=== PATIENT | female | born 1970 | race Caucasian/White ===

== ENCOUNTER 2021-08-22 09:54 | Emergency (ER) | payer SELFPAY ==
[2021-08-22 10:00] VITALS: BP 165/100; PULSE 77; RESP 18; TEMP 36.9; O2SAT 99
--- NOTE | 2021-08-22 10:01 | US_ITS ---
WS: [id number] TRANSABDOMINAL PELVIC AND TRANSVAGINAL PELVIC ULTRASOUND HISTORY: heavy vaginal bleeding COMPARISON: None available. Uterus: 9.3 cm x 6.6 cm x 5.3 cm. Mildly enlarged anteverted uterus. Mild heterogeneity throughout th e myometrium. There is a fibroid identified in the posterior inferior myometrium measuring 1.8 x 1.6 x 1.3 cm. Endometrium: 2.0 cm. Enlarged mildly heterogeneous endometrium. No definite focal mass identified. Right ovary: 3.8 cm x 4.1 cm x 1.8 cm. Multiple small follicles in the ovary. No solid mass. Normal v ascularity. Left ovary: 2.3 cm x 2.8 cm x 2.0 cm. Normal ovary with normal vascularity. Small follicles. No free fluid in the cul-de-sac. US/US transvaginal [id number] IMPRESSION: 1. Thickened heterogeneous endometrium. No mass identified. Consider endometri al hyperplasia. Direct visualization may be necessary. 2. Mildly enlarged uterus with a fibroid in the posterior inferior myometrium.
[2021-08-22 10:22] VITALS: O2SAT 95
--- NOTE | 2021-08-22 10:28 | W.ED.FEMALGU ---
Documented by User: KAISER Farnsworth 08/22/21 12:43 HPI - Female Genitourinary General: Chief complaint: Vaginal Bleeding Stated complaint: VAGINAL BLEEDING: SENT BY PCP Time Seen by Provider: 08/22/21 09:55 Source: patient Mode of arrival: ambulatory Limitations: no limitations History of Present Illness: HPI Narrative: Patient is a 51-year-old female who presents to ED today with complaints of vaginal bleeding. She states she is currently going through menopause so often has sporadic vaginal bleeding but she states over the past 13 days she has been bleeding heavily with clots. She reports she mainly visualizes bleeding while urinating. She has no complaints of dysuria and doesn't think bleeding is urethral. She was seen by PCP and told to come to ED for evaluation becauase blood levels were low (report from clinic showed a POC hemoglobin of roughly 9). She states she chronically has anemia and takes iron supplementation. She reports mild lower pelvic cramping. Onset (ago): day(s) Severity: moderate Vaginal discharge: none Vaginal bleeding: moderate Associated symptoms: Reports vaginal bleeding; Deny abdominal pain, headache(s) or nausea Treatment prior to arrival: none Patient : No Review of Systems Const: Denies: fever(s), chills, body aches, fatigue or malaise Card: Denies: chest pain Resp: Denies: dyspnea GI: Denies: abdominal pain, nausea, vomiting or diarrhea : Reports: vaginal bleeding, irregular period and pelvic pain (intermittent cramping); Denies: flank pain, difficulty voiding, dysuria, urinary frequency, urinary urgency, urinary hesitancy or vaginal odor Musc: Denies: neck pain, back pain, extremity pain or joint pain Skin/Breast: Denies: rash Neuro: Reports: dizziness (mild/intermittent); Denies: headache(s), numbness in extremities, weakness in extremities or sensory changes Physical Exam Const: COMMON NORMALS: no acute distress, average body habitus, patient oriented x3, no limitations, healthy appearing, alert and well nourished GENERAL APPEARANCE: cooperative ORIENTATION/CONSCIOUSNESS: Yes awake, Yes oriented to person, Yes oriented to place and Yes oriented to time HENMT: COMMON NORMALS: normocephalic and atraumatic HEAD & SCALP: normocephalic and atraumatic Resp: COMMON NORMALS: normal respiratory effort and clear to auscultation bilaterally AUSCULTATION: clear to auscultation bilaterally Cardio: COMMON NORMALS: regular rate and regular rhythm RATE: regular rate RHYTHM: regular rhythm GI: COMMON NORMALS: Normal to inspection, nondistended, normoactive bowel sounds present, Soft to palpation, No hepatosplenomegaly present and no masses PALPATION: Yes Soft to palpation, Yes Tenderness to palpation present (GI) (very mild lower abdomen/pelvis; non-surgical exam) and Yes No hepatosplenomegaly present : COMMON NORMALS: Yes no CVA tenderness BLADDER/KIDNEY EXAM: Yes no CVA tenderness EXTERNAL FEMALE EXAM: Yes normal appearance of the urethra and Yes other (no bleeding noted from urethra) SPECULUM EXAM - VAGINA: No laceration, No lesion, Yes vaginal bleeding Amount: small/minimal (coming from cervical os), No mass and No Vaginal discharge present SPECULUM EXAM - CERVIX: Yes Cervical os closed, No Cervical lesion present and No Cervical mass present OB/EXTERNAL & SPECULUM: vaginal bleeding Back/Pelvis: COMMON NORMALS: no CVA tenderness Neuro: COMMON NORMALS: patient oriented x3 SENSORIUM/ORIENTATION: Yes alert, Yes oriented to person, Yes oriented to place and Yes oriented to time Skin: COMMON NORMALS: no rashes or lesions noted GENERAL SKIN EXAM: no rashes or lesions noted Course ED course: Patient has a note from her outlying clinic stating she had a POC hemoglobin of 9.4 thus prompting their referral to the ED as her hemoglobin was over 12 in March of this year. CBC here shows a hemoglobin of over 12. This seems to be a vastly different result even accounting for lab variability. Possibly POC machine needs calibrated. Regardless we will re-run a CBC here to verify results. Vital Signs: Vital signs: Vital Signs Temperature 98.4 F 08/22/21 10:00 Pulse Rate 76 08/22/21 12:48 Respiratory Rate 18 08/22/21 10:00 Blood Pressure 149/66 08/22/21 12:48 Pulse Oximetry 100 08/22/21 12:48 MDM - Female MDM Narrative: Medical decision making narrative: Patient is a perimenopausal 51-year-old here for heavy vaginal bleeding over the past 13 days. There was some question to whether this could be urethral bleeding however she was visualized to have blood coming from her cervical os. Her UA is normal. Bleeding could be secondary to ovulatory dysfunction/menopause but she was noted to have a fibroid and possible endometrial hyperplasia on US. Clinic were she was sent from noted a POC hemoglobin of roughly 9. Our CBC here showed a hemoglobin of 12.6 (this was verified by repeat lab-11.7). CM will work on getting patient an appointment with [facility] for further evaluation. Return to ED precautions given. Lab Data: Labs: Lab Results 08/22/21 08/22/21 08/22/21 10:20 10:20 10:20 WBC 6.7 10^3/uL 10^3/ uL (4.0-10.0) RBC 4.04 10^6/uL L 10 ^6/uL (4.1-5.3) Hgb 12.6 g/dL g/dL (11.5-15.3) Hct 37.4 % % (37.0-47.0) MCV 92.6 fl fl (81-99) MCH 31.2 pg pg (28.0-34.0) MCHC 33.7 g/dL g/dL (30.0-36.0) RDW 13.1 % % (12.1-15.1) Plt Count 268 10^3/cmm 10^3 /cmm (130-400) MPV 10.4 fL fL (7.4-10.4) Neut % (Auto) 74.5 % % Lymph % (Auto) 16.1 % % [place] % (Auto) 7.7 % % Eos % (Auto) 0.8 % % Baso % (Auto) 0.6 % % Neut # (Auto) 4.97 10^3/uL 10^3 /uL (1.8-7.7) Lymph # (Auto) 1.1 10^3/uL 10^3/ uL (0.8-4.8) [place] # (Auto) 0.5 10^3/uL 10^3/ uL (0.2-0.9) Eos # (Auto) 0.1 10^3/uL 10^3/ uL (0.0-0.8) Baso # (Auto) 0.0 10^3/uL 10^3/ uL (0.0-0.1) Nucleated RBC % (a uto) 0 % % Nucleated RBCs # 0.0 /100WBC /100W BC PT 12.40 SECONDS SEC ONDS (12.1-14.9) INR 0.89 (0.8-1.2) APTT 24.7 SECONDS SECO NDS (23.9-36.7) Sodium 138 mmol/L mmol/L (136-145) Potassium 4.2 mmol/L mmol/L (3.5-5.1) Chloride 102 mmol/L mmol/L (98-107) Carbon Dioxide 26 mmol/L mmol/L (22-29) Anion Gap 14.2 (5-19) BUN 12 mg/dL mg/dL (6-20) Creatinine 0.4 mg/dL L mg/dL (0.5-0.9) GFR Calculation 169.0 mL/min H mL /min (90-130) Glucose 95 mg/dL mg/dL (65-115) Calculated Osmolal ity 286 mOsm/kg mOsm/ kg (285-295) Calcium 9.2 mg/dL mg/dL (8.5-10.5) Total Bilirubin 0.3 mg/dL mg/dL (0.15-1.2) AST 17 U/L U/L (0-32) ALT 13 U/L U/L (0-33) Alkaline Phosphata se 89 IU/L IU/L (35-105) Total Protein 6.9 g/dL g/dL (6.6-8.7) Albumin 4.4 g/dL g/dL (3.5-5.2) Globulin 2.5 g/dL g/dL (1.3-4.6) Urine Color Urine Appearance Urine pH Ur Specific Gravit y Urine Protein Urine Glucose (UA) Urine Ketones Urine Blood Urine Nitrate Urine Bilirubin Prot Sulfosalicyli c Acd Urine Urobilinogen Ur Leukocyte Bea ase 08/22/21 08/22/21 11:30 11:55 WBC 7.4 10^3/uL 10^3/ uL (4.0-10.0) RBC 3.82 10^6/uL L 10 ^6/uL (4.1-5.3) Hgb 11.7 g/dL g/dL (11.5-15.3) Hct 35.0 % L % (37.0-47.0) MCV 91.6 fl fl (81-99) MCH 30.6 pg pg (28.0-34.0) MCHC 33.4 g/dL g/dL (30.0-36.0) RDW 13.1 % % (12.1-15.1) Plt Count 259 10^3/cmm 10^3 /cmm (130-400) MPV 10.5 fL H fL (7.4-10.4) Neut % (Auto) 75.0 % % Lymph % (Auto) 17.2 % % [place] % (Auto) 6.2 % % Eos % (Auto) 0.4 % % Baso % (Auto) 0.8 % % Neut # (Auto) 5.53 10^3/uL 10^3 /uL (1.8-7.7) Lymph # (Auto) 1.3 10^3/uL 10^3/ uL (0.8-4.8) [place] # (Auto) 0.5 10^3/uL 10^3/ uL (0.2-0.9) Eos # (Auto) 0.0 10^3/uL 10^3/ uL (0.0-0.8) Baso # (Auto) 0.1 10^3/uL 10^3/ uL (0.0-0.1) Nucleated RBC % (a uto) 0 % % Nucleated RBCs # 0.0 /100WBC /100W BC PT INR APTT Sodium Potassium Chloride Carbon Dioxide Anion Gap BUN Creatinine GFR Calculation Glucose Calculated Osmolal ity Calcium Total Bilirubin AST ALT Alkaline Phosphata se Total Protein Albumin Globulin Urine Color Straw (Yellow) Urine Appearance Clear (CLEAR) Urine pH 8 H (5-7) Ur Specific Gravit y 1.010 (1.005-1.030) Urine Protein Neg (Negative) Urine Glucose (UA) Norm (Normal) Urine Ketones 1+ H (Negative) Urine Blood Neg (Negative) Urine Nitrate Negative (Negative) Urine Bilirubin Neg (Negative) Prot Sulfosalicyli c Acd Negative (Negative) Urine Urobilinogen Norm mg/dL mg/dL (Negative) Ur Leukocyte Bea ase Negative (Negative) Imaging Data: US transvaginal: Radiologist's impression: [address] [place] [address] Ultrasound Report Signed Patient: Debra Correa Unit #: [id number] : 1970 Age/Sex: 51 / F ADM Date: 08/22/21 Loc: ER Room/Bed: Attending Dr: Ordering Provider/Ordering MD: Myrna Acevedo Date of Service: 08/22/21 Procedure(s): US transvaginal [address]14 Accession Number(s): [id number] Report Number: [id number] WS: [id number] TRANSABDOMINAL PELVIC AND TRANSVAGINAL PELVIC ULTRASOUND HISTORY: heavy vaginal bleeding COMPARISON: None available. Uterus: 9.3 cm x 6.6 cm x 5.3 cm. Mildly enlarged anteverted uterus. Mild heterogeneity throughout the myometrium. There is a fibroid identified in the posterior inferior myometrium measuring 1.8 x 1.6 x 1.3 cm. Endometrium: 2.0 cm. Enlarged mildly heterogeneous endometrium. No definite focal mass identified. Right ovary: 3.8 cm x 4.1 cm x 1.8 cm. Multiple small follicles in the ovary. No solid mass. Normal vascularity. Left ovary: 2.3 cm x 2.8 cm x 2.0 cm. Normal ovary with normal vascularity. Small follicles. No free fluid in the cul-de-sac. US/US transvaginal [id number] IMPRESSION: 1. Thickened heterogeneous endometrium. No mass identified. Consider endometrial hyperplasia. Direct visualization may be necessary. 2. Mildly enlarged uterus with a fibroid in the posterior inferior myometrium. Dictated By: Kalani Drake DO Signed By: Kalani Drake DO Signed Date/Time: 08/22/218 DD/ 1105 Discharge Plan Discharge Patient Disposition: Home Clinical Impression: Abnormal uterine bleeding Condition: Stable Discharge Orders: Discharge ED (Routine); Ordered 08/22/21 Ordered By: Myrna Acevedo Referrals: Sharon Viramontes PA-C [Primary Care Provider] - Activity Restrictions/Additional Instructions: As we discussed case management is working on getting you set up with the women's health clinic for further evaluation of your bleeding. You need to return to the ED for severe vaginal bleeding (soaking more than 1 pad an hour), lightheadedness/dizziness/passing out episodes, racing heart rate, pale skin, or any other concerns you may have. Coding Level of Care Code ED Straightening Press Operator for Chg Fwd Exam Detailed Documented by User: Nico Ramirez DO 08/22/21 14:27 HPI - Female Genitourinary General: Chief complaint: Vaginal Bleeding Stated complaint: VAGINAL BLEEDING: SENT BY PCP Time Seen by Provider: 08/22/21 09:55 Course Vital Signs: Vital signs: Vital Signs Temperature 98.4 F 08/22/21 10:00 Pulse Rate 76 08/22/21 12:48 Respiratory Rate 18 08/22/21 10:00 Blood Pressure 149/66 08/22/21 12:48 Pulse Oximetry 100 08/22/21 12:48 MDM - Female MDM Narrative: Medical decision making narrative: Chart reviewed. Patient seen by [facility]sworth agree with assessment and plan Lab Data: Labs: Lab Results 08/22/21 08/22/21 08/22/21 10:20 10:20 10:20 WBC 6.7 10^3/uL 10^3/ uL (4.0-10.0) RBC 4.04 10^6/uL L 10 ^6/uL (4.1-5.3) Hgb 12.6 g/dL g/dL (11.5-15.3) Hct 37.4 % % (37.0-47.0) MCV 92.6 fl fl (81-99) MCH 31.2 pg pg (28.0-34.0) MCHC 33.7 g/dL g/dL (30.0-36.0) RDW 13.1 % % (12.1-15.1) Plt Count 268 10^3/cmm 10^3 /cmm (130-400) MPV 10.4 fL fL (7.4-10.4) Neut % (Auto) 74.5 % % Lymph % (Auto) 16.1 % % [place] % (Auto) 7.7 % % Eos % (Auto) 0.8 % % Baso % (Auto) 0.6 % % Neut # (Auto) 4.97 10^3/uL 10^3 /uL (1.8-7.7) Lymph # (Auto) 1.1 10^3/uL 10^3/ uL (0.8-4.8) [place] # (Auto) 0.5 10^3/uL 10^3/ uL (0.2-0.9) Eos # (Auto) 0.1 10^3/uL 10^3/ uL (0.0-0.8) Baso # (Auto) 0.0 10^3/uL 10^3/ uL (0.0-0.1) Nucleated RBC % (a uto) 0 % % Nucleated RBCs # 0.0 /100WBC /100W BC PT 12.40 SECONDS SEC ONDS (12.1-14.9) INR 0.89 (0.8-1.2) APTT 24.7 SECONDS SECO NDS (23.9-36.7) Sodium 138 mmol/L mmol/L (136-145) Potassium 4.2 mmol/L mmol/L (3.5-5.1) Chloride 102 mmol/L mmol/L (98-107) Carbon Dioxide 26 mmol/L mmol/L (22-29) Anion Gap 14.2 (5-19) BUN 12 mg/dL mg/dL (6-20) Creatinine 0.4 mg/dL L mg/dL (0.5-0.9) GFR Calculation 169.0 mL/min H mL /min (90-130) Glucose 95 mg/dL mg/dL (65-115) Calculated Osmolal ity 286 mOsm/kg mOsm/ kg (285-295) Calcium 9.2 mg/dL mg/dL (8.5-10.5) Total Bilirubin 0.3 mg/dL mg/dL (0.15-1.2) AST 17 U/L U/L (0-32) ALT 13 U/L U/L (0-33) Alkaline Phosphata se 89 IU/L IU/L (35-105) Total Protein 6.9 g/dL g/dL (6.6-8.7) Albumin 4.4 g/dL g/dL (3.5-5.2) Globulin 2.5 g/dL g/dL (1.3-4.6) Urine Color Urine Appearance Urine pH Ur Specific Gravit y Urine Protein Urine Glucose (UA) Urine Ketones Urine Blood Urine Nitrate Urine Bilirubin Prot Sulfosalicyli c Acd Urine Urobilinogen Ur Leukocyte Bea ase 08/22/21 08/22/21 11:30 11:55 WBC 7.4 10^3/uL 10^3/ uL (4.0-10.0) RBC 3.82 10^6/uL L 10 ^6/uL (4.1-5.3) Hgb 11.7 g/dL g/dL (11.5-15.3) Hct 35.0 % L % (37.0-47.0) MCV 91.6 fl fl (81-99) MCH 30.6 pg pg (28.0-34.0) MCHC 33.4 g/dL g/dL (30.0-36.0) RDW 13.1 % % (12.1-15.1) Plt Count 259 10^3/cmm 10^3 /cmm (130-400) MPV 10.5 fL H fL (7.4-10.4) Neut % (Auto) 75.0 % % Lymph % (Auto) 17.2 % % [place] % (Auto) 6.2 % % Eos % (Auto) 0.4 % % Baso % (Auto) 0.8 % % Neut # (Auto) 5.53 10^3/uL 10^3 /uL (1.8-7.7) Lymph # (Auto) 1.3 10^3/uL 10^3/ uL (0.8-4.8) [place] # (Auto) 0.5 10^3/uL 10^3/ uL (0.2-0.9) Eos # (Auto) 0.0 10^3/uL 10^3/ uL (0.0-0.8) Baso # (Auto) 0.1 10^3/uL 10^3/ uL (0.0-0.1) Nucleated RBC % (a uto) 0 % % Nucleated RBCs # 0.0 /100WBC /100W BC PT INR APTT Sodium Potassium Chloride Carbon Dioxide Anion Gap BUN Creatinine GFR Calculation Glucose Calculated Osmolal ity Calcium Total Bilirubin AST ALT Alkaline Phosphata se Total Protein Albumin Globulin Urine Color Straw (Yellow) Urine Appearance Clear (CLEAR) Urine pH 8 H (5-7) Ur Specific Gravit y 1.010 (1.005-1.030) Urine Protein Neg (Negative) Urine Glucose (UA) Norm (Normal) Urine Ketones 1+ H (Negative) Urine Blood Neg (Negative) Urine Nitrate Negative (Negative) Urine Bilirubin Neg (Negative) Prot Sulfosalicyli c Acd Negative (Negative) Urine Urobilinogen Norm mg/dL mg/dL (Negative) Ur Leukocyte Bea ase Negative (Negative) Discharge Plan Discharge Patient Disposition: Home Clinical Impression: Abnormal uterine bleeding Condition: Stable Discharge Orders: Discharge ED (Routine); Ordered 08/22/21 Ordered By: Myrna Acevedo Referrals: Sharon Viramontes PA-C [Primary Care Provider] - Activity Restrictions/Additional Instructions: As we discussed case management is working on getting you set up with the women's health clinic for further evaluation of your bleeding. You need to return to the ED for severe vaginal bleeding (soaking more than 1 pad an hour), lightheadedness/dizziness/passing out episodes, racing heart rate, pale skin, or any other concerns you may have. Coding Level of Care Code ED Straightening Press Operator for Chg Fwd Exam Detailed
[2021-08-22 10:51] LABS: Basophils % 0.6 %; Eosinophils # 0.1 10^3/uL (0.0-0.8); Eosinophils % 0.8 %; Hematocrit 37.4 % (37.0-47.0); Hemoglobin 12.6 g/dL (11.5-15.3); Lymphocytes # 1.1 10^3/uL (0.8-4.8); Lymphocytes % 16.1 %; Mean Corpuscular HGB Conc 33.7 g/dL (30.0-36.0); Mean Corpuscular Hemoglobin 31.2 pg (28.0-34.0); Mean Corpuscular Volume 92.6 fl (81-99); Mean Platelet Volume 10.4 fL (7.4-10.4); Monocytes # 0.5 10^3/uL (0.2-0.9); Monocytes % 7.7 %; Neutrophils # 4.97 10^3/uL (1.8-7.7); Neutrophils % 74.5 %; Nucleated Red Blood Cells % 0 %; Platelet Count 268 10^3/cmm (130-400); Red Blood Count 4.04 10^6/uL (4.1-5.3); Red Cell Distribution Width 13.1 % (12.1-15.1); White Blood Count 6.7 10^3/uL (4.0-10.0)
--- NOTE | 2021-08-22 11:04 | PC.NURSE ---
Pt oriented to room. C/o vaginal bleeding for 13 days. Pt reports it to be crampy and has multiple big clots. Pt placed in gown, put on hemodynamic monitoring. call light within reach.
[2021-08-22 11:05] LABS: INR 0.89 (0.8-1.2)
[2021-08-22 11:06] LABS: Partial Thromboplastin Time 24.7 SECONDS (23.9-36.7)
[2021-08-22 11:13] LABS: Alanine Aminotransferase 13 U/L (0-33); Albumin Level 4.4 g/dL (3.5-5.2); Alkaline Phosphatase 89 IU/L (35-105); Anion Gap 14.2 (5-19); Aspartate Amino Transferase 17 U/L (0-32); Blood Urea Nitrogen 12 mg/dL (6-20); Calcium 9.2 mg/dL (8.5-10.5); Carbon Dioxide 26 mmol/L (22-29); Chloride 102 mmol/L (98-107); Globulin 2.5 g/dL (1.3-4.6); Glucose 95 mg/dL (65-115); Osmolality Calculated 286 mOsm/kg (285-295); Potassium 4.2 mmol/L (3.5-5.1); Sodium 138 mmol/L (136-145); Total Bilirubin 0.3 mg/dL (0.15-1.2); Total Protein 6.9 g/dL (6.6-8.7)
[2021-08-22 11:18] LABS: Creatinine Clr Calc Pharmacy 165.4568
[2021-08-22 11:52] LABS: Add Urine Microscopic? NO; Charge for UA Resulting for Rev
[2021-08-22 12:04] LABS: Bilirubin Urine Neg (Negative); Blood Urine Neg (Negative); Glucose Urine UA Norm (Normal); Ketones Urine 1+ (Negative); Nitrate Urine Negative (Negative); Protein Urine Neg (Negative); Urine Appearance Clear (CLEAR); Urine Color Straw (Yellow); pH Urine 8 (5-7)
[2021-08-22 12:05] LABS: Leukocyte Esterase Urine Negative (Negative); Sulfosalicylic Acid Urine Negative (Negative); Urobilinogen Urine Norm (Negative)
--- NOTE | 2021-08-22 12:05 | DCPLANNER ---
bus company manager had message to schedule a follow up appointment for patient with [facility]. bus company manager called [facility], spoke with Luis, gave clinic patients information. bus company manager was told that patients information would be printed and reviewed. Clinic will call patient with appointment information.
[2021-08-22 12:17] LABS: Basophils # 0.1 10^3/uL (0.0-0.1); Basophils % 0.8 %; Eosinophils % 0.4 %; Hemoglobin 11.7 g/dL (11.5-15.3); Lymphocytes # 1.3 10^3/uL (0.8-4.8); Lymphocytes % 17.2 %; Mean Corpuscular HGB Conc 33.4 g/dL (30.0-36.0); Mean Corpuscular Hemoglobin 30.6 pg (28.0-34.0); Mean Corpuscular Volume 91.6 fl (81-99); Mean Platelet Volume 10.5 fL (7.4-10.4); Monocytes # 0.5 10^3/uL (0.2-0.9); Monocytes % 6.2 %; Neutrophils # 5.53 10^3/uL (1.8-7.7); Nucleated Red Blood Cells % 0 %; Platelet Count 259 10^3/cmm (130-400); Red Blood Count 3.82 10^6/uL (4.1-5.3); Red Cell Distribution Width 13.1 % (12.1-15.1); White Blood Count 7.4 10^3/uL (4.0-10.0)
[2021-08-22 12:48] VITALS: BP 149/66; PULSE 76; O2SAT 100
--- NOTE | 2021-08-27 12:30 | DCPLANNER ---
Addendum entered by Cristina Perez 11/15/21 11:09: Patient had a follow up appointment scheduled with [facility] - patient did attend appointment. Original Note: Patient has a follow up appointment scheduled for Thursday, September 16, 2021 at 8:[address] Barnett. Clinic will call patient with appointment information.
== END 2021-08-22 12:58 | disposition home or self-care (01) ==
PROVIDERS: Emergency Provider Physician Assistant; PCP Physician Assistant
DX: N93.9 Abnormal uterine and vaginal bleeding, unspecified (principal)
CPT/HCPCS: 36415; 51701; 76830; 80053; 81003; 85025; 85610; 85730; 99283; E0352

== ENCOUNTER → 2021-09-16 08:54 | Outpatient (BNVA) | payer SELFPAY | PROVIDERS: PCP Physician Assistant; Referring Provider Physician Assistant; Visit Provider Obstetrics & Gynecology | DX: Z12.4 Encounter for screening for malignant neoplasm of cervix (principal); N93.9 Abnormal uterine and vaginal bleeding, unspecified | CPT/HCPCS: 83001; 84146; 84443; 84702; 87624 ==

== ENCOUNTER 2024-01-07 08:35 | Outpatient (CLI) | payer BC, SELFPAY ==
--- NOTE | 2024-01-07 08:39 | MM_ITS ---
WS: [id number] BILATERAL SCREENING DIGITAL TOMOSYNTHESIS MAMMOGRAM WITH CAD HISTORY: Z12.31 - Encounter for screening mammogram for malignant ... COMPARISON: 12/13/2018 Bilateral CC and MLO views with tomosynthesis and synthetic mammography submitted. Computer aided det ection analyzed. Breast composition: The breasts are heterogeneously dense, which may obscure small masses. No suspici ous masses, microcalcifications or architectural distortion. Benign calcifications. IMPRESSION: MM/[place] [id number] BI-RADS: 2-Benign FOLLOW UP: 1 Year Follow-up
== END 2024-01-07 08:36 | disposition home or self-care (01) ==
LOC: RAD 08:35
PROVIDERS: PCP Physician Assistant; Visit Provider Obstetrics & Gynecology
DX: Z12.31 Encounter for screening mammogram for malignant neoplasm of breast (principal)
CPT/HCPCS: 77063; 77067

== ENCOUNTER 2024-03-21 18:01 | Observation (INO) | payer BC, SELFPAY ==
--- NOTE | 2024-03-13 09:38 | ANES.PREANE2 ---
Pre-Anesthetic Assessment Height/Weight: Height 1.73 m Operation Date: 03/21/24 14:55 Proposed Procedures p Total Vaginal Hysterectomy 87647, N93.9, D25.1(Not Applicable) - Gilberto Barnett MD s Salpingo-Oophorectomy (Vaginal)(Not Applicable) - Gilberto Barnett MD Familial anesthetic complications: none Was Beta Servando taken within 24 hours: N/A Was Clonidine taken within 24 hours: N/A Social Alcohol (daily beer) and No tobacco (h/o smoking) Exam alert, oriented x 3, clear to auscultation bilaterally and regular rate & rhythm Airway Submandibular: within normal limits Cervical ROM: within normal limits Mallampati: Class II Dentition: chipped CV/HEM Hypertension GI Gastroesophageal Reflux Disease Musc/skel Lower Back Pain and Osteoarthritis/DJD Anesthetic Plan ASA status: 3 Anesthesia: General Medications/Allergies Home Medications Medication Instructions Recorded Confirmed Last Taken Type lisinopril 10 mg tablet 10 mg PO DAILY 11/26/23 03/13/24 03/13/24 History esomeprazole magnesium 20 mg 20 mg PO DAILY 03/13/24 03/13/24 03/13/24 History capsule,delayed release (Nexium) Allergies Allergy/AdvReac Type Severity Reaction Status Date / Time No Known Allergies Allergy Verified 03/13/24 07:49 [facility] Anesthesia Surgical History H/O tubal ligation Family History Father Diabetes Hyperlipidemia Hypertension Heart disease Mother Diabetes Hyperlipidemia Hypertension Grandmother Diabetes paternal Family/Other Diabetes paternal family members Denies family history of Colon cancer Ovarian cancer Clotting disorder Breast cancer Anesthesia complication Bleeding disorder Uterine cancer Thyroid disease Stroke Data Anesthesia Cardiac Studies: No Data to Display
[2024-03-21] VITALS (13 sets, daily range): BP systolic 143–185; BP diastolic 79–107; PULSE 64–85; RESP 1–27; TEMP 36.3–37.3; O2SAT 93–100; BMI 23.1
--- NOTE | 2024-03-21 13:43 | P.ANESUD_ITS ---
Pre-Anesthetic Update Pre-Anesthetic Assessment: Date of Surgery/Procedure: 03/21/24 Preop Heydi gnosis: Menorrhagia, uterine fibroid Proposed Procedure: Operation Date: 03/21/24 14:55 Proposed Procedures p Total Vaginal Hysterectomy 69456, N93.9, D25.1(Not Applicable) - Gilberto Barnett MD s Salpingo-Oophorectomy (Vaginal)(Not Applicable) - Gilberto Barnett MD Any changes to Pre-Anesthetic Assessment?: No Last Intake: > 8hrs Exam: Pre-Anes Outpt Exam: alert, oriented x 3, clear to auscultation bilaterally and regular rate & rhythm Cardiac Studies: No Data to Display
[2024-03-21 13:46] LABS: OR HCG Qualitative Urine Negative (Negative)
[2024-03-21] MEDS: scopolamine 1.5 Patch 1 PATCH TRANSDERMA (13:59)
[2024-03-21] MEDS: sodium chloride 0.9% 500 ML IV (14:00)
[2024-03-21] MEDS: sodium chloride 0.9% 1,000 ML 30 ML IV (14:00)
[2024-03-21] MEDS: ceFOXitin 2,000 MG in sodium chloride 0.9% (plus) 50 ML 100 MG IV (14:00)
[2024-03-21 14:21] LABS: Add Urine Microscopic? YES; Bilirubin Urine Neg (Negative); Blood Urine Neg (Negative); Glucose Urine UA Norm (Normal); Ketones Urine Negative (Negative); Leukocyte Esterase Urine Negative (Negative); Nitrate Urine Negative (Negative); Protein Urine Neg (Negative); Sulfosalicylic Acid Urine Negative (Negative); Urine Appearance Cloudy (CLEAR); Urine Color Yellow (Yellow); Urobilinogen Urine Norm (Negative); pH Urine 8 (5-7)
[2024-03-21 14:22] LABS: Amorphous Sediment Urine 2+ /hpf; Bacteria Urine 1+ /hpf; RBC Urine 0-4 /hpf (0-2); Squamous Epithelial Cell Urine 0-4 /hpf (0-5); WBC Urine 0-4 /hpf (0-5)
[2024-03-21 14:28] LABS: Basophils # 0.1 10^3/uL (0.0-0.1); Basophils % 1.5 %; Eosinophils # 0.2 10^3/uL (0.0-0.8); Lymphocytes % 36.5 %; Mean Corpuscular HGB Conc 34.1 g/dL (30-55); Mean Corpuscular Volume 93.6 fl (85-98); Mean Platelet Volume 10.3 fL (7.4-10.4); Monocytes # 0.5 10^3/uL (0.2-0.9); Monocytes % 8.6 %; Neutrophils # 2.68 10^3/uL (1.8-7.7); Neutrophils % 49.2 %; Nucleated Red Blood Cells % 0 %; Platelet Count 293 10^3/cmm (157-399); Red Blood Count 4.38 10^6/uL (3.85-5.65); Red Cell Distribution Width 11.9 % (12.1-15.1); White Blood Count 5.45 10^3/uL (3.29-11.43)
[2024-03-21 14:54] LABS: Alanine Aminotransferase 17 U/L (0-33); Albumin Level 4.4 g/dL (3.5-5.2); Alkaline Phosphatase 124 U/L (35-105); Aspartate Amino Transferase 24 U/L (0-32); Blood Urea Nitrogen 12 mg/dL (6-20); Calcium 9.7 mg/dL (8.5-10.5); Carbon Dioxide 27 mmol/L (22-29); Chloride 102 mmol/L (98-107); Creatinine Clr Calc Pharmacy 133.3426; Globulin 3.4 g/dL (1.3-4.6); Glomerular Filtration Rate 129.6 mL/min (90-130); Glucose 88 mg/dL (65-115); Osmolality Calculated 289 mOsm/kg (285-295); Sodium 140 mmol/L (136-145); Total Bilirubin 0.4 mg/dL (0.15-1.2); Total Protein 7.8 g/dL (6.6-8.7)
[2024-03-21 14:55] LABS: Anion Gap 14.9 (5-19); Potassium 3.9 mmol/L (3.5-5.1)
--- NOTE | 2024-03-21 15:30 | W.PM.OPSUD ---
Surgery/Procedure H&P Update DATE OF PROCEDURE: March 21, 2024 DATE H&P PERFORMED: 03/13/24 H&P UPDATE INFORMATION: I have reviewed H&P completed within last 30 days, I have examined patient prior to procedure and No changes to prior documentation PREOP DIAGNOSIS: Menorrhagia, uterine fibroid PLANNED PROCEDURE: Operation Date: 03/21/24 14:55 Proposed Procedures p Total Vaginal Hysterectomy 46565, N93.9, D25.1(Not Applicable) - Gilberto Barnett MD s Salpingo-Oophorectomy (Vaginal)(Not Applicable) - Gilberto Barnett MD
[2024-03-21] MEDS: lidocaine-epi 2% PF 1:200,000 20 mL SDV INJECTION (16:29)
--- NOTE | 2024-03-21 17:26 | P.BOP_ITS ---
Date of Procedure: 03/21/24 Surgeon: Gilberto Barnett MD Smelter Liner(s): Procedure(s) performed: Total vaginal hysterectomy with bilateral salpingo- oophorectomy Findings of the procedure(s): Fibroid uterus Estimated blood loss: 150 mL Specimen(s) removed: Uterus, left and right fallopian tubes and ovaries Post-operative diagnosis: Status post total vaginal hysterectomy with bilateral salpingo-oophorectomy
--- NOTE | 2024-03-21 17:27 | P.OP_ITS ---
Operative Report Date of procedure: March 21, 2024 Pre-op diagnosis: Fibroid uterus Abnormal uterine bleeding: Menorrhagia Post-op diagnosis: same Procedure done: Total vaginal hysterectomy with bilateral salpingo-oophorectomy Specimens removed/disposition: Uterus Left and right fallopian tubes and ovaries Surgeon: Gilberto Barnett MD Estimated blood loss (mL): 150 IV fluids (mL): 1,200 Urine output (mL): 100 Complications: None Procedure: After informed consent and risks, benefits, indications and alternatives reviewed with the patient was taken to the operating room. The patient was placed in dorsal lithotomy position prepped, and draped in the usual sterile fashion. The pre-procedure timeout verifying the correct patient, procedure, site and side, could not requirements was performed and acknowledge by the OR team. A Hugo catheter was placed. A Bookwalter vaginal retractor was placed into the vagina in usual manner visualize the cervix. Cervix was grasped with a single tooth tenaculum and circumferentially infiltrated with 2% lidocaine with epinephrine. Then cervix was circumferentially incised with bovie and the blad marek was dissected off the pubovesical cervical fascia anteriorly with a sponge stick and Metzenbaum scissors. The anterior peritoneal reflection was identified and the anterior cul-de-sac was entered sharply with Metzenbaum scissors. The same procedure was performed posteriorly and a posterior colpotomy was made through the posterior cul-de-sac space without difficulty and the posterior blade of the Bookwalter vaginal retractor was advanced posteriorly into the cul-de-sac. At this time, the left and right uterosacral ligaments were isolated and ligated with 0 Vicryl. The LigaSure device was placed over the uterosacral ligaments on either side and was then used in a serial fashion up through the cardinal ligaments bilaterally cross-clamped, cut, and sealed with the LigaSure device. Finally, the uterine arteries were cross-clamped, cut, sealed and ligated with the LigaSure device. Hemostasis was assured. The broad ligaments were then serially clamped, sealed and cut with the LigaSure device on both sides. Excellent hemostasis was visualized. Both cornua were clamped, sealed and cut with the LigaSure device. Then the pedicles were then suture ligated with excellent hemostasis. The uterus was excised and submitted for pathologic evaluation. No other abnormalities were noted in the pelvic cavity. Then the right side Infundibular ligament was identified. The ureter was conf irmed along the pelvic side wall and peristalsis was noted. The LigaSure device was then used to clamp, sealed and transcepted at middistance, again being sure to be clear of the ureter and the fallopian tube and ovary were removed. The same process was then repeated on the left side. Good hemostasis was assure on both sides. The peritoneum was then closed in a pursestring fashion with 0 Vicryl suture. The vaginal cuff angles were closed with [id number] #0 Vicryl suture on both sides and transfixed with the ipsilateral cardinal and uterosacral ligaments. The remainder of the vaginal cuff was closed with #0 Vicryl in a running locked fashion. At this time, instruments were removed from the vagina at hemostasis assured. Hugo catheter was noted yielding clear blue-green urine. The patient was taken out of dorsal lithotomy position and awakened from the general anesthesia. The patient tolerated the procedure well and was taken to the PACU recovery room in a stable condition. Sponge, lap, needle and instruments counts were correct x3.
[2024-03-21] MEDS: fentaNYL 50 mcg/mL INJ 2mL IVP (18:03)
--- NOTE | 2024-03-21 18:20 | ANE.PACU2 ---
Inpatient post-anesthesia follow up: Airway intact: Yes Vital signs: Temperature 98.2 F Pulse Rate 76 Respiratory Rate 16 Blood Pressure 154/73 Pulse Oximetry 98 Oxygen Delivery Me thod Room Air Oxygen Flow Rate 8 Fraction of Inspir ed Oxygen Hydration adequate: Yes Nausea and vomiting: No Pain level: 1 Mental status: Baseline
[2024-03-21] MEDS: dextrose 5%-lactated ringers 1,000 ML 125 ML IV (19:38)
[2024-03-21] MEDS: docusate sodium 100 mg Capsule PO (19:39)
[2024-03-21] MEDS: lisinopril 10 mg Tablet PO (19:39)
[2024-03-21] MEDS: ketorolac 30 mg/mL INJ IVP (19:44)
[2024-03-22] MEDS: ketorolac 30 mg/mL INJ IVP ×2 (00:12→05:53)
[2024-03-22 00:36] VITALS: BP 157/82; PULSE 81; RESP 16; TEMP 36.8; O2SAT 97
[2024-03-22] MEDS: dextrose 5%-lactated ringers 1,000 ML 125 ML IV (01:24)
[2024-03-22] MEDS: ondansetron 2 mg/ML SDV 2 mL 4 MG IVP (01:24)
[2024-03-22] MEDS: HYDROcodone-acetaminophen 5-325 mg Tablet PO (01:43)
[2024-03-22 04:58] VITALS: BP 154/73; PULSE 76; RESP 16; TEMP 36.8; O2SAT 98
[2024-03-22 05:26] LABS: Hematocrit 35.6 % (36-47); Mean Corpuscular HGB Conc 35.1 g/dL (30-55); Mean Corpuscular Hemoglobin 32.6 pg (27-33); Mean Corpuscular Volume 92.7 fl (85-98); Mean Platelet Volume 10.1 fL (7.4-10.4); Platelet Count 252 10^3/cmm (157-399); Red Blood Count 3.84 10^6/uL (3.85-5.65); Red Cell Distribution Width 11.8 % (12.1-15.1); White Blood Count 7.44 10^3/uL (3.29-11.43)
[2024-03-22 07:37] VITALS: BP 138/77; PULSE 80; RESP 17; TEMP 36.7; O2SAT 98
[2024-03-22] MEDS: lisinopril 10 mg Tablet PO (09:16)
[2024-03-22] MEDS: pantoprazole DR 40 mg Tablet PO (09:16)
[2024-03-22] MEDS: docusate sodium 100 mg Capsule PO (09:16)
--- NOTE | 2024-03-22 10:35 | PC.CHAP ---
Pastoral Care Encounter/Spiritual Assessment Type of Contact [x] Declined commercial title examiner visit [] Patient/Family/Request visit [] Outpatient visit [] Follow-up visit [] Physician referral [] Code/Alert [] Routine visit [] Staff referral [] Actively dying [] Patient sleeping [] Family support [] [] Out of room [] Palliative care [] [] Receiving care in room [] Pre-surgical visit [] Trauma [] Long length of stay [] ICU visit [] Other: Relational/Emotional Strength [] Patient feels connected with others/family/visitors/staff [] Distress [] Loneliness/isolation [] Abandonment Spirituality of Patient [] Person of Dinora [] Attends Cheondoism of their Dinora [] Believes in Prayer [] Reads Bible or Baptist materials [x] There are Spiritual issues to be addressed Camera Mechanic Interventions [x] Prayer [] Active listening [] Non-anxious presence [] Spiritual/emotional support [] Crisis/trauma care [] Spiritual counseling [] Bereavement support [] Provided bereavement packet [] Provided Bible/devotional materials [] Provided toy/stuffed animal, coloring book to patient or family member [] Provided Communion [] Anointing/[place] [] Salvation [] Completed spiritual assessment [] Other: Impact on Illness or Injury [] Angry [] Fearful [] Anxious [] Often cries [] Exhaustion [] Unable to work [] Unable to attend sikh [] Unable to walk/stand [] Unable to read [] Unable to drive [] Unable to eat/drink [] Unable to sleep [] Unable to be with family [] Patient intubated [] Other: Summary Time spent with patient 1 min
--- NOTE | 2024-03-22 11:05 | P.DS_ITS ---
Discharge Providers CLINICAL NURSING PROFESSOR Date of Admission: 03/21/24 18:01 Date of Discharge: 03/22/24 Attending Provider at Admission: Gilberto Barnett MD Attending Provider at Discharge: Gilberto Barnett MD Primary Care Provider: Sharon Viramontes Reason for Visit Reason for Visit: N93.9 Hospital Course Hospital Course Mrs. Mason 53-year-old female with a history of abnormal uterine bleeding and uterine fibroid. She was admitted for planned total vaginal hysterectomy with bilateral salpingo-oophorectomy. The procedures were performed without complication. Overnight observation was uneventful. Tolerating diet well. Ambulating without difficulty. Patient was counseled regarding pelvic rest for 6 weeks (no sex, no tampons, no vaginal douches). Return to the emergency room if any fever, increased bleeding or pain. Physical Exam Narrative: GA: Alert and oriented ?3. HEENT: WNL. Heart: Regular rate and rhythm. Lungs: Clear to auscultation bilaterally. Abdomen: Bowel sounds present, nontender. FAMILY ASSESSMENT WORKER: Scant bleeding. Extremities: No edema, no cyanosis, no calves pain. Urinary Catheter Management: Hugo: Cath Placed During This Visit: yes Urinary Catheter Date of Insertion: 03/21/24 Urinary Catheter Time of Insertion: 16:15 History History History 3 Term 3 0 Miscarriages/Ectopic 0 Living Children 3 Discharge Data Studies Completed and Pending Pending at discharge Category Date Time Status Pathology: Surgical [PTH] Routine Pth 03/21/24 17:16 Received Laboratory Results WBC 7.44 10^3/uL (3.29-11.43) 03/22/24 05:14 RBC 3.84 10^6/uL (3.85-5.65) L 03/22/24 05:14 Hgb 12.50 g/dL (11.27-16.99) 03/22/24 05:14 Hct 35.6 % (36-47) L 03/22/24 05:14 MCV 92.7 fl (85-98) 03/22/24 05:14 MCH 32.6 pg (27-33) 03/22/24 05:14 MCHC 35.1 g/dL (30-55) 03/22/24 05:14 RDW 11.8 % (12.1-15.1) L 03/22/24 05:14 Plt Count 252 10^3/cmm (157-399) 03/22/24 05:14 MPV 10.1 fL (7.4-10.4) 03/22/24 05:14 Neut % (Auto) 49.2 % 03/21/24 14:04 Lymph % (Auto) 36.5 % 03/21/24 14:04 Hudspeth % (Auto) 8.6 % 03/21/24 14:04 Eos % (Auto) 4.0 % 03/21/24 14:04 Baso % (Auto) 1.5 % 03/21/24 14:04 Neut # (Auto) 2.68 10^3/uL (1.8-7.7) 03/21/24 14:04 Lymph # (Auto) 2.0 10^3/uL (0.8-4.8) 03/21/24 14:04 Hudspeth # (Auto) 0.5 10^3/uL (0.2-0.9) 03/21/24 14:04 Eos # (Auto) 0.2 10^3/uL (0.0-0.8) 03/21/24 14:04 Baso # (Auto) 0.1 10^3/uL (0.0-0.1) 03/21/24 14:04 Nucleated RBC % (auto) 0 % 03/21/24 14:04 Nucleated RBCs # 0.0 /100WBC 03/21/24 14:04 Sodium 140 mmol/L (136-145) 03/21/24 14:04 Potassium 3.9 mmol/L (3.5-5.1) 03/21/24 14:04 Chloride 102 mmol/L (98-107) 03/21/24 14:04 Carbon Dioxide 27 mmol/L (22-29) 03/21/24 14:04 Anion Gap 14.9 (5-19) 03/21/24 14:04 BUN 12 mg/dL (6-20) 03/21/24 14:04 Creatinine 0.5 mg/dL (0.5-0.9) 03/21/24 14:04 GFR Calculation 129.6 mL/min (90-130) 03/21/24 14:04 Glucose 88 mg/dL (65-115) 03/21/24 14:04 Calculated Osmolality 289 mOsm/kg (285-295) 03/21/24 14:04 Calcium 9.7 mg/dL (8.5-10.5) 03/21/24 14:04 Total Bilirubin 0.4 mg/dL (0.15-1.2) 03/21/24 14:04 AST 24 U/L (0-32) 03/21/24 14:04 ALT 17 U/L (0-33) 03/21/24 14:04 Alkaline Phosphatase 124 U/L (35-105) H 03/21/24 14:04 Total Protein 7.8 g/dL (6.6-8.7) 03/21/24 14:04 Albumin 4.4 g/dL (3.5-5.2) 03/21/24 14:04 Globulin 3.4 g/dL (1.3-4.6) 03/21/24 14:04 Urine Color Yellow (Yellow) 03/21/24 13:44 Urine Appearance Cloudy (CLEAR) A 03/21/24 13:44 Urine pH 8 (5-7) H 03/21/24 13:44 Ur Specific Ada 1.010 (1.005-1.030) 03/21/24 13:44 Urine Protein Neg (Negative) 03/21/24 13:44 Urine Glucose (UA) Norm (Normal) 03/21/24 13:44 Urine Ketones Negative (Negative) 03/21/24 13:44 Urine Blood Neg (Negative) 03/21/24 13:44 Urine Nitrate Negative (Negative) 03/21/24 13:44 Urine Bilirubin Neg (Negative) 03/21/24 13:44 Prot Sulfosalicylic Acd Negative (Negative) 03/21/24 13:44 Urine Urobilinogen Norm mg/dL (Negative) 03/21/24 13:44 Ur Leukocyte Esterase Negative (Negative) 03/21/24 13:44 Urine RBC 0-4 /hpf (0-2) H 03/21/24 13:44 Urine WBC 0-4 /hpf (0-5) H 03/21/24 13:44 Ur Squamous Epith Cells 0-4 /hpf (0-5) H 03/21/24 13:44 Amorphous Sediment 2+ /hpf 03/21/24 13:44 Urine Bacteria 1+ /hpf (NONE) H 03/21/24 13:44 Urine HCG, Qual Negative (Negative) 03/21/24 13:39 Blood Type A Positive 03/21/24 14:04 Rho(D) Type Rh positive 03/21/24 14:04 Antibody Screen Negative 03/21/24 14:04 Vitals Last Vital Signs Temp 98.1 F 03/22/24 07:37 Pulse 80 03/22/24 07:37 Resp 17 03/22/24 07:37 BP 138/77 03/22/24 07:37 Pulse Ox 98 03/22/24 07:37 O2 Del Method Room Air 03/22/24 07:37 O2 Flow Rate 8 03/21/24 17:47 Results Labs OB ([facility]): Blood Type A Positive 03/21/24 Antibody Screen Negative 03/21/24 Hct 35.6 % (36-47) L 03/22/24 Hgb 12.50 g/dL (11.27-16.99) 03/22/24 Rho(D) Type Rh positive 03/21/24 Plt Count 252 10^3/cmm (157-399) 03/22/24 TSH 1.61 uIU/mL (0.27-4.20) 09/16/21 FSH 18.4 mIU/mL 09/16/21 Ser , Semi-Qnt 0.50 mIU/mL 09/16/21 Pap Smear Interpret See note 09/16/21 Prolactin 17.45 ng/mL (4.8-23.3) 09/16/21 Discharge Plan Discharge Patient Disposition: Home Condition: Stable Prescriptions: New hydrocodone-acetaminophen 5-325 mg tablet 1 tab PO Q4H PRN (Reason: pain) Qty: 20 0RF acetaminophen 325 mg capsule 325 mg PO Q4H PRN (Reason: fever or pain) Qty: 60 0RF ibuprofen 800 mg tablet 800 mg PO TID PRN (Reason: pain) Qty: 60 0RF Continued lisinopril 10 mg tablet 10 mg PO DAILY esomeprazole magnesium [Nexium] 20 mg Capsule,Delayed Release(Dr/Ec) 20 mg PO DAILY Discharge Orders: Discharge Order (Routine); Ordered 03/22/24 Ordered By: Gilberto Barnett Referrals: Gilberto Barnett MD [Physician] - 04/04/24 2:30 pm (FOLLOW up appointment 05-04-24 at 9:30) Discharge Diet: Usual diet Discharge Activity: Limit activity as instructed Patient Instructions: Salpingo-Oophorectomy (GEN), Vaginal Hysterectomy (GEN), Opioid Safety Activity Restrictions/Additional Instructions: 1. Please call [facility] on next working day to make your post-operative appointment in 2 weeks. 2. Please stay home until you come back to the clinic on first post- hospatilization check up. 3. Please follow instructions on your medications CAREFULLY. 4. If you have abdominal incision, do not cover it unless dressing is necessary because of drainage. OK to shower, but avoid bath. Leave steri-strips until they fall off. If they are still on one week after surgery, you may remove them. 5. If you had vaginal surgery or vaginal repair, Dr. Barnett may instruct you to take SITZ bath. 6. Yellow, blood tinged odorous vaginal discharge is usually normal after hysterectomy or vaginal surgeries. 7. No SEXUAL INTERCOURSE, tampons, or douches until you are completely released from the post-operative care. 8. Avoid constipation by eating right and maybe using some Metamucil or Milk of Magnesia. 9. All prescription refills are given during the working hours. Please do no wait till it runs out. Call the clinic at [phone] before your medication runs out. The clinic will get in touch with your doctor to prescribe medications if necessary. 10. Please remain within 40 mile radius from our hospital because emergencies do happen now and then during the post-operative period. 11. If you have stairs at home, take one step at a time slowly and minimize the number of trips. It helps to stay in one floor for the next few days. No lifting except what you can lift by one hand until you are released from the post-operative care. 12. Driving is discouraged until you are well healed. It may be 3-4 weeks before you feel strong enough to drive. You should be able to turn and look through the rear window without pain and you should be able to push the brake pedal very hard without pain before you drive. No fast rules, but SAFETY should be your primary concern. DO NOT drive if you are on sedating medications such as narcotics. 13. Call the clinic (during working hours) to make urgent appointment or go to the Emergency room, if any of the following occurs: i. Vaginal bleeding becomes heavy, more than a period. ii. Incision becomes red and sore, or drains pus. iii. Your TEMPERATURE is over 100.4F or you have chill. iv. IV site becomes red and swollen (a little ``knot?? is usually OK) v. Persistent nausea and vomiting vi. Persistent constipation or diarrhea vii. Rash or allergic reaction to medications. Discharge Attestations CLINICAL NURSING PROFESSOR Time Spent in Discharge Care*: greater than 30 min Coding Level of Care Code Acute Code for Chg Fwd
[2024-03-22 11:34] VITALS: BP 149/94; PULSE 78; RESP 18; TEMP 36.9; O2SAT 97
[2024-03-22 11:36] VITALS: BP 149/94; PULSE 78; RESP 18; TEMP 36.9; O2SAT 97
== END 2024-03-22 12:05 | disposition home or self-care (01) ==
LOC: MEDSURG 18:01
PROVIDERS: Admitting Provider Obstetrics & Gynecology; PCP Physician Assistant; Visit Provider Obstetrics & Gynecology
PROC: (CPT 58262; principal; 2024-03-21 14:35)
PROC: (CPT 58720; 2024-03-21 14:35)
DX: N92.0 Excessive and frequent menstruation with regular cycle (principal); I10 Essential (primary) hypertension; K21.9 Gastro-esophageal reflux disease without esophagitis; D25.1 Intramural leiomyoma of uterus
CPT/HCPCS: 58262; 36415; 80053; 81001; 81025; 85025; 85027; 86850; 86900; 88307; G0378; J0131; J0694; J1100; J1170; J1885; J2405; J2704; J2710; J3010; J3490; J7030; J7040; J7121

== ENCOUNTER → 2024-06-29 10:25 | Outpatient (BNVA) | payer BC, SELFPAY | PROVIDERS: PCP Physician Assistant; Visit Provider Obstetrics & Gynecology | DX: Z90.710 Acquired absence of both cervix and uterus (principal); R10.2 Pelvic and perineal pain | CPT/HCPCS: 76857 ==

== ENCOUNTER 2025-03-29 10:41 | Outpatient (CLI) | payer BC, SELFPAY ==
--- NOTE | 2025-03-29 10:40 | MM_ITS ---
WS: [id number] BILATERAL SCREENING DIGITAL TOMOSYNTHESIS MAMMOGRAM WITH CAD HISTORY: SCREENING COMPARISON: 01/07/2024, 12/13/2018 Bilateral CC and MLO views with tomosynthesis and synthetic mammography submitted. Computer aided detection analyzed. Breast composition: The breasts are extremely dense, which lowers the sensitivity of mammography. No suspicious masses, microcalcifications or architectural distortion. Dense calcifications in each breast. No suspicious mass or distortion. Vascular calcifications. MM/MM [facility] tomosynthesis [id number] IMPRESSION: BI-RADS: 2 - Benign FOLLOW UP: 1 Year Follow-up
== END 2025-03-29 10:42 | disposition home or self-care (01) ==
LOC: MOBLMAM 10:45
PROVIDERS: PCP Nurse Practitioner Occupational Health; Visit Provider Nurse Practitioner Occupational Health
DX: Z12.31 Encounter for screening mammogram for malignant neoplasm of breast (principal); R92.343 Mammographic extreme density, bilateral breasts; R92.1 Mammographic calcification found on diagnostic imaging of breast
CPT/HCPCS: 77063; 77067

== ENCOUNTER 2025-05-21 20:21 | Emergency (ER) | payer BC, SELFPAY ==
[2025-05-21 20:23] VITALS: BP 169/97; PULSE 81; RESP 14; TEMP 36.6; O2SAT 96
[2025-05-21] MEDS: tetracaine 0.5% Op Soln 4 mL Btl 1 DROP EYE-BOTH (20:29)
--- NOTE | 2025-05-21 20:39 | W.ED.EYEPROB ---
HPI - Eye Problem General: Chief complaint: Eye Problems Stated complaint: Rt Eye- Something in Eye,Pain Time Seen by Provider: 05/21/25 20:23 Source: patient Mode of arrival: ambulatory Limitations: no limitations History of Present Illness: 55-year-old female states she went walking in the [place] this morning states she thinks she got something in her eye or scratch her eye she is been having right eye pain since then states pains been sharp in nature she had some slight redness states it is worse with bright lights. She denies any headaches. Associated symptoms: Denies fever(s), headache(s), nausea, neck pain or vomiting Related Data Home Medications ?Medication ?Instructions ?Recorded ?Confirmed lisinopril 10 mg tablet 10 mg PO DAILY 11/26/23 01/11/25 Previous Rx's ?Medication ?Instructions ?Recorded acetaminophen 325 mg capsule 325 mg PO Q4H PRN fever or pain 03/22/24 #60 caps hydrocodone 5 mg-acetaminophen 325 1 tab PO Q4H PRN pain #20 tabs 03/22/24 mg tablet ibuprofen 800 mg tablet 800 mg PO TID PRN pain #60 tabs 03/22/24 docusate sodium 100 mg capsule 100 mg PO BID #60 caps 04/04/24 (Colace) pantoprazole 40 mg tablet,delayed 40 mg PO DAILY #90 tabs 04/05/24 release (Protonix) metronidazole 500 mg tablet 500 mg PO BID 7 days #14 tabs 04/06/24 zolpidem 5 mg tablet (Ambien) 5 mg PO .qhs #30 tabs 06/08/24 estradiol 0.01% (0.1 mg/gram) 1 g vaginal DAILY #42.5 grams 01/11/25 vaginal cream estradiol 1 mg tablet 1.5 mg (1.5 x 1 mg) .Route 01/11/25 .COMPLEX #90 tabs erythromycin 5 mg/gram (0.5 %) eye 1 applic ophthalmic (eye) Q6H 5 05/21/25 ointment (3.5 gram tube) days #3.5 grams Allergies Allergy/AdvReac Type Severity Reaction Status Date / Time No Known Allergies Allergy Verified 05/21/25 20:27 Review of Systems Const: Denies: fever(s), chills, body aches or change in appetite Eyes: Reports: eye discomfort ENMT: Denies: throat pain or dental pain GI: Denies: abdominal pain, nausea, vomiting or diarrhea Musc: Denies: neck pain or back pain Skin/Breast: Denies: rash Neuro: Denies: headache(s) PFSH ED PFSH: Medical History No pertinent past medical history neghx:dm,thyroid,dvt/pe [facility] Surgical History H/O vaginal hysterectomy (~03/21/24) TVH WITH BSO performed by Anibal at [facility] for fibroids, AUB; benign pathology. H/O tubal ligation Family History Father Diabetes Hyperlipidemia Hypertension Heart disease Mother Diabetes Hyperlipidemia Hypertension Grandmother Diabetes paternal Family/Other Diabetes paternal family members Denies family history of Colon cancer Ovarian cancer Clotting disorder Breast cancer Anesthesia complication Bleeding disorder Uterine cancer Thyroid disease Stroke Social History Smoking and tobacco/nicotine status: former use of tobacco/nicotine Physical Exam Const: COMMON NORMALS: no acute distress, patient oriented x3 and healthy appearing HENMT: COMMON NORMALS: normocephalic and atraumatic HEAD & SCALP: normocephalic and atraumatic Eye: OTHER: Corneal abrasion noted to bottom part of the cornea no ulcer no perforation Neck/C-Spine: COMMON NORMALS: full ROM and supple Chest: COMMONS NORMALS: normal inspection of the chest Resp: COMMON NORMALS: normal respiratory effort Cardio: COMMON NORMALS: regular rate RATE: regular rate Extremity: COMMON NORMALS: normal to inspection and full ROM Neuro: COMMON NORMALS: patient oriented x3, moves all extremities and no focal motor deficits Psych: COMMON NORMALS: mental status grossly normal, Normal thought process present and cooperative THOUGHT PROCESS: Normal thought process present Skin: COMMON NORMALS: no rashes or lesions noted and no wounds GENERAL SKIN EXAM: no rashes or lesions noted Course Vital Signs: Vital signs: Vital Signs Temperature 97.9 F 05/21/25 20:23 Pulse Rate 81 05/21/25 20:23 Respiratory Rate 14 05/21/25 20:23 Blood Pressure 169/97 05/21/25 20:23 Pulse Oximetry 96 05/21/25 20:23 MDM - Eye Problem Medical Decision Making Patient presents here with corneal abrasion no ulcers no perforation will start erythromycin ointment she stable for discharge return if worsening Medical Records I reviewed the patient's medical records. No radiology studies performed this visit Discharge Plan Discharge Patient Disposition: Home Clinical Impression: Corneal abrasion Condition: Stable Prescriptions: New erythromycin 5 mg/gram (0.5 %) ointment 1 applic ophthalmic (eye) Q6H 5 Days Qty: 3.5 0RF No Action lisinopril 10 mg tablet 10 mg PO DAILY docusate sodium [Colace] 100 mg capsule 100 mg PO BID Qty: 60 2RF zolpidem [Ambien] 5 mg tablet 5 mg PO .qhs Qty: 30 0RF estradiol 1 mg tablet 1.5 mg .ROUTE .COMPLEX Qty: 90 3RF Rx Instructions: 1.5 mg; estradiol 0.01 % (0.1 mg/gram) cream 1 g vaginal DAILY Qty: 42.5 3RF Rx Instructions: for 14 days pantoprazole [Protonix] 40 mg tablet,delayed release (DR/EC) 40 mg PO DAILY Qty: 90 0RF metronidazole 500 mg tablet 500 mg PO BID 7 Days Qty: 14 0RF ibuprofen 800 mg tablet 800 mg PO TID PRN (Reason: pain) Qty: 60 0RF hydrocodone-acetaminophen 5-325 mg tablet 1 tab PO Q4H PRN (Reason: pain) Qty: 20 0RF acetaminophen 325 mg capsule 325 mg PO Q4H PRN (Reason: fever or pain) Qty: 60 0RF Discharge Orders: Discharge ED (Routine); Ordered 05/21/25 Ordered By: Sanjiv Sprague Referrals: Shae Dsouza FNP [Primary Care Provider] Discharge Diet: Advance as tolerated Discharge Activity: Resume usual activity Patient Instructions: Corneal Abrasion (ED) Print Language: Wallisian Coding Level of Care Code ED Deputy Harbormaster for Shabana Cronin
[2025-05-21 20:46] VITALS: BP 149/83; PULSE 70; O2SAT 96
== END 2025-05-21 20:47 | disposition home or self-care (01) ==
PROVIDERS: Emergency Provider Emergency Medicine; PCP Nurse Practitioner Occupational Health
DX: S05.01XA Injury of conjunctiva and corneal abrasion without foreign body, right eye, initial encounter (principal); Z87.891 Personal history of nicotine dependence; I10 Essential (primary) hypertension; X58.XXXA Exposure to other specified factors, initial encounter
CPT/HCPCS: 99283; J9999